=== PATIENT | female | born 1995 | race American Indian/Alaskan Native ===

== ENCOUNTER 2017-03-24 13:57 | Emergency (ER) | payer OTHER ==
[2017-03-24 14:06] VITALS: BP 100/60
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
== END 2017-03-24 16:35 | disposition home or self-care (01) ==
LOC: ED 13:57
DX: S16.1XXA Strain of muscle, fascia and tendon at neck level, initial encounter (principal); M25.512 Pain in left shoulder; V49.59XA Passenger injured in collision with other motor vehicles in traffic accident, initial encounter; Y93.9 Activity, unspecified; Y92.9 Unspecified place or not applicable; Y99.9 Unspecified external cause status
CPT/HCPCS: 72040; 99283

== ENCOUNTER 2017-08-03 15:40 | Emergency (ER) | payer SELFPAY ==
[2017-08-03 16:11] VITALS: BP 108/58
[2017-08-03 17:30] LABS: Bacteria,Urine 1+ /HPF (Negative); Bilirubin,Urine NEG (Negative); Blood,Urine NEG (Negative); Ketones,Urine NEG (Negative); Leukocyte Esterase,Urine TR (Negative); Mucus,Urine FEW /HPF; Nitrite,Urine NEG (Negative); Protein,Urine <15 mg/dL mg/dL (Negative); Urobilinogen,Urine < 2.0 mg/dL (<2.0)
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
== END 2017-08-03 17:47 | disposition home or self-care (01) ==
LOC: ED 15:40
DX: O26.891 Other specified pregnancy related conditions, first trimester (principal); R10.9 Unspecified abdominal pain; Z3A.00 Weeks of gestation of pregnancy not specified
CPT/HCPCS: 81001; 81025; 99283

== ENCOUNTER 2019-11-30 09:39 | Emergency (ER) | payer MEDICAID ==
[2019-11-30 09:52] VITALS: BP 109/74
[2019-11-30] MEDS ORDERED: IBUPROFEN 600 MG TAB PO ONE (10:24)
[2019-11-30] MEDS ORDERED: ACETAMINOPHEN 325 MG TAB PO ONE (10:24)
--- NOTE | 2019-11-30 10:38 | Emergency Department Report ---
ED Abdominal Pain HPI - General Chief Complaint: Abdominal Pain Stated Complaint: LEFT PAIN, CHILLS Time Seen by Provider: 11/30/19 10:24 Source: patient Mode of arrival: Ambulatory Limitations: No Limitations - History of Present Illness Initial Comments: L flank/LUQ pain for past 1-2 days, UTI sx x 3 days no fever but had chills no vomiting no discharge MD Complaint: flank pain -: Gradual, days(s) (3) Location: L flank Radiation: none Migration to: no migration Severity: moderate Severity scale (0 -10): 6 Quality: aching Consistency: constant Improves With: nothing Worsens With: nothing Associated Symptoms: dysuria - Related Data Previous Rx's Medication Instructions Recorded Last Taken Type Albuterol INH(or & Nicu Only) 2 puff IH QID PRN #1 inhalation 08/28/18 Unknown Rx [ProAir HFA Inhaler] Naproxen [Naprosyn TAB] 500 mg PO BID #20 tablet 11/30/19 Unknown Rx cefUROXime [Ceftin] 500 mg PO Q12H #20 tablet 11/30/19 Unknown Rx Allergies Allergy/AdvReac Type Severity Reaction Status Date / Time No Known Allergies Allergy Unverified 03/24/17 14:02 ED Review of Systems ROS: Stated complaint: LEFT PAIN, CHILLS Other details as noted in HPI Comment: All other systems reviewed and negative Gastrointestinal: as per HPI Genitourinary: as per HPI ED Past Medical Hx - Past Medical History Previous Medical History?: No - Surgical History Past Surgical History?: No - Social History Smoking Status: Never Smoker Substance Use Type: None - Medications Home Medications: Home Medications Medication Instructions Recorded Confirmed Last Taken Type Albuterol INH(or & Nicu Only) 2 puff IH QID PRN #1 inhalation 08/28/18 Unknown Rx [ProAir HFA Inhaler] Naproxen [Naprosyn TAB] 500 mg PO BID #20 tablet 11/30/19 Unknown Rx cefUROXime [Ceftin] 500 mg PO Q12H #20 tablet 11/30/19 Unknown Rx ED Physical Exam - General Limitations: No Limitations General appearance: alert, in no apparent distress - Head Head exam: Present: atraumatic, normocephalic - Eye Eye exam: Present: normal appearance - ENT ENT exam: Present: mucous membranes moist - Neck Neck exam: Present: normal inspection - Respiratory Respiratory exam: Present: normal lung sounds bilaterally. Absent: respiratory distress - Cardiovascular Cardiovascular Exam: Present: regular rate, normal rhythm. Absent: systolic murmur, diastolic murmur, rubs, gallop - GI/Abdominal GI/Abdominal exam: Present: soft, tenderness (minimal LUQ), normal bowel sounds. Absent: guarding, rebound - Extremities Exam Extremities exam: Present: normal inspection - Back Exam Back exam: Present: normal inspection. Absent: CVA tenderness (R), CVA tenderness (L) - Neurological Exam Neurological exam: Present: alert, oriented X3 - Psychiatric Psychiatric exam: Present: normal affect, normal mood - Skin Skin exam: Present: warm, dry, intact, normal color. Absent: rash ED Course Vital Signs 11/30/19 09:51 Temperature 97.2 F L Pulse Rate 119 H Respiratory 16 Rate Blood Pressure 109/74 O2 Sat by Pulse 100 Oximetry ED Medical Decision Making - Lab Data Result diagrams: 11/30/19 10:37 11/30/19 10:37 - Medical Decision Making L flank/LUQ pain w/ urinary symptoms exam without focal tenderness in RUQ or RLQ hcg neg UA = UTI labs stable will treat and advise pcp fu HR ~100 on my exam - Differential Diagnosis uti, stone less likely, gastritis Critical care attestation.: If time is entered above; I have spent that time in minutes in the direct care of this critically ill patient, excluding procedure time. ED Disposition Clinical Impression: Urinary tract infection Qualifiers: Urinary tract infection type: site unspecified Hematuria presence: with hematuria Qualified Code(s): N39.0 - Urinary tract infection, site not specified; R31.9 - Hematuria, unspecified Disposition: DC-01 TO HOME OR SELFCARE Is pt being admited?: No Condition: Stable Instructions: Urinary Tract Infection in Women (ED), Abdominal Pain (ED) Prescriptions: cefUROXime [Ceftin] 500 mg PO Q12H #20 tablet Naproxen [Naprosyn TAB] 500 mg PO BID #20 tablet Referrals: AJAY OTT MD [Primary Care Provider] - 3-5 Days JUSTIN HO MD [Referring] - 3-5 Days Time of Disposition: 11:41
[2019-11-30 10:57] LABS: Basophils % (Auto) 0.3 % (0.0-1.8); Hematocrit 34.6 % (30.3-42.9); Hemoglobin 11.6 gm/dl (10.1-14.3); Lymphocytes # (Auto) 1.2 K/mm3 (1.2-5.4); Lymphocytes % (Auto) 14.1 % (13.4-35.0); Mean Corpuscular HGB Conc 34 % (30-34); Mean Corpuscular Volume 81 fl (79-97); Monocytes # (Auto) 1.1 K/mm3 (0.0-0.8); Monocytes % (Auto) 12.5 % (0.0-7.3); Platelet Count 254 K/mm3 (140-440); Red Blood Count 4.29 M/mm3 (3.65-5.03); Red Cell Distribution Width 15.4 % (13.2-15.2)
[2019-11-30 11:01] LABS: Bacteria,Urine 4+ /HPF (Negative); Bilirubin,Urine NEG (Negative); Blood,Urine MOD (Negative); Color,Urine Amber (Yellow); HCG Qualitative,Urine Negative (Negative); Mucus,Urine 3+ /HPF
[2019-11-30 11:03] LABS: WBC,Urine > 182.0 /HPF (0.0-6.0)
[2019-11-30 11:19] LABS: BUN/Creatinine Ratio 13; Blood Urea Nitrogen 8 mg/dL (7-17); Hemolysis Index 12
== END 2019-11-30 12:17 | disposition home or self-care (01) ==
LOC: ED 09:39
DX: N39.0 Urinary tract infection, site not specified (principal); R68.83 Chills (without fever); Z79.899 Other long term (current) drug therapy
CPT/HCPCS: 36415; 80048; 81001; 81025; 85025; 87086

== ENCOUNTER 2020-05-27 13:32 | Emergency (ER) | payer MEDICAID ==
--- NOTE | 2020-05-27 14:13 | Emergency Department Report ---
Chief Complaint: Eye Problems Stated Complaint: PINK EYE Time Seen by Provider: 05/27/20 14:11 - HPI History of Present Illness: Patient is a 25-year-old female presents emergency room stating she needs a work excuse. She states 3 days ago she had left eye discomfort and redness. she denies anything getting into the eye. She states that she has been using an [id number] pinkeye relief drops. She states it has completely resolved. No vision changes, no crusting, no drainage. She has no symptoms currently. No past medical history. No allergies to medications. Vitals are normal On exam: PERRLA, EOMI, no periorbital edema or tenderness to palpation or erythema, no conjunctival injection, no signs of drainage, no eyelid swelling No signs of conjunctivitis or eye infection at this time She is presenting to the emergency room because she states she needs a work excuse advised patient that she can follow-up with a primary care physician discussed return precautions Medical screening examination performed there is no threat to life or limb at this time - Exam Vital Signs: Vital Signs 05/27/20 13:47 Temperature 97.6 F Pulse Rate 86 Respiratory 16 Rate Blood Pressure 111/65 [Right] O2 Sat by Pulse 99 Oximetry MSE screening note: Focused history and physical exam performed. ED Disposition for MSE Clinical Impression: Encounter for medical screening examination Disposition: MED SCREENING EXAM-LEFT Is pt being admited?: No Does the pt Need Aspirin: No Condition: Stable Referrals: MEHUL MARK MD [Staff Physician] - 2-3 Days [facility] [Provider Group] - 2-3 Days [facility] [Outside] - 2-3 Days Forms: Work/School Release Form(ED) Time of Disposition: 14:13 Print Language: EGYPTIAN
[2020-05-27 18:38] VITALS: BP 111/65
== END 2020-05-27 14:34 | disposition left against medical advice (07) ==
LOC: ED 13:32
DX: H57.12 Ocular pain, left eye (principal); Z00.00 Encounter for general adult medical examination without abnormal findings; Z53.21 Procedure and treatment not carried out due to patient leaving prior to being seen by health care provider

== ENCOUNTER → 2020-08-04 14:54 | Emergency (ER) | payer MEDICAID | END | disposition left against medical advice (07) | LOC: ED 14:54 | DX: N39.0 Urinary tract infection, site not specified (principal); Z53.21 Procedure and treatment not carried out due to patient leaving prior to being seen by health care provider ==

== ENCOUNTER 2020-12-15 10:15 | Emergency (ER) | payer MEDICAID ==
[2020-12-15 10:49] VITALS: BP 121/71
--- NOTE | 2020-12-15 11:11 | Emergency Department Report ---
ED Female HPI - General Chief complaint: Urogenital-Female Stated complaint: LEFT SIDE FLANK/URGENCY Time Seen by Provider: 12/15/20 10:54 Source: patient Mode of arrival: Ambulatory Limitations: No Limitations - History of Present Illness Initial comments: pt is a 25 yo female who presents to the ED with c/o stating "I have a yeast infection or UTI." she states for the last several days she has had urinary urgency, vaginal itching, very small amount of white vaginal discharge. she states a few days ago she had mild left flank pain but that completely self resolved. she denies any pelvic pain, abd pain, fever, n/v/d, dysuria. no pmhx. no allergies to meds. LNMP 11/30/2020. she states that she has an appointment with her [facility] on 12/26/2020. - Related Data Previous Rx's Medication Instructions Recorded Last Taken Type Albuterol Mdi (or & Nicu Only) 2 puff IH QID PRN #1 inhalation 08/28/18 Unknown Rx [ProAir HFA Inhaler] Naproxen [Naprosyn TAB] 500 mg PO BID #20 tablet 11/30/19 Unknown Rx cefUROXime [Ceftin] 500 mg PO Q12H #20 tablet 11/30/19 Unknown Rx Fluconazole (Nf) [Diflucan TAB] 150 mg PO ONCE 1 Days #1 tablet 12/15/20 Unknown Rx Miconazole 2% [Monistat-Derm] 1 applicatio TP BID #1 tube 12/15/20 Unknown Rx Allergies Allergy/AdvReac Type Severity Reaction Status Date / Time No Known Allergies Allergy Verified 12/15/20 10:45 ED Review of Systems ROS: Stated complaint: LEFT SIDE FLANK/URGENCY Other details as noted in HPI Comment: All other systems reviewed and negative ED Past Medical Hx - Past Medical History Previous Medical History?: No - Surgical History Past Surgical History?: No - Social History Smoking Status: Never Smoker Substance Use Type: None - Medications Home Medications: Home Medications Medication Instructions Recorded Confirmed Last Taken Type Albuterol Mdi (or & Nicu Only) 2 puff IH QID PRN #1 inhalation 08/28/18 Unknown Rx [ProAir HFA Inhaler] Naproxen [Naprosyn TAB] 500 mg PO BID #20 tablet 11/30/19 Unknown Rx cefUROXime [Ceftin] 500 mg PO Q12H #20 tablet 11/30/19 Unknown Rx Fluconazole (Nf) [Diflucan TAB] 150 mg PO ONCE 1 Days #1 tablet 12/15/20 Unknown Rx Miconazole 2% [Monistat-Derm] 1 applicatio TP BID #1 tube 12/15/20 Unknown Rx ED Physical Exam - General Limitations: No Limitations General appearance: alert, in no apparent distress - Head Head exam: Present: atraumatic, normocephalic - Eye Eye exam: Present: normal appearance - ENT ENT exam: Present: mucous membranes moist - Respiratory Respiratory exam: Present: normal lung sounds bilaterally. Absent: respiratory distress, wheezes, rales, rhonchi, stridor, chest wall tenderness, accessory muscle use, decreased breath sounds, prolonged expiratory - Cardiovascular Cardiovascular Exam: Present: regular rate, normal rhythm, normal heart sounds. Absent: systolic murmur, diastolic murmur, rubs, gallop - GI/Abdominal GI/Abdominal exam: Present: soft, normal bowel sounds. Absent: distended, tenderness, guarding, rebound, rigid - Back Exam Back exam: Absent: CVA tenderness (R), CVA tenderness (L) - Neurological Exam Neurological exam: Present: alert, oriented X3 - Psychiatric Psychiatric exam: Present: normal affect, normal mood - Skin Skin exam: Present: warm, dry, intact ED Course Vital Signs 12/15/20 10:45 Temperature 98.6 F Pulse Rate 65 Respiratory 20 Rate Blood Pressure 121/71 O2 Sat by Pulse 100 Oximetry ED Medical Decision Making - Medical Decision Making pt is a 25 yo female who presents to the ED with c/o stating "I have a yeast infection or UTI." she states for the last several days she has had urinary urgency, vaginal itching, very small amount of white vaginal discharge. she states a few days ago she had mild left flank pain but that completely self resolved. she denies any pelvic pain, abd pain, fever, n/v/d, dysuria. no pmhx. no allergies to meds. LNMP 11/30/2020. she states that she has an appointment with her [facility] on 12/26/2020. Vitals are normal. No abdominal tenderness on exam, no guarding, no rigidity, normal bowel sounds, no peritoneal signs. UA shows yeast, no significant signs of urinary tract infection. Patient given prescription for fluconazole and miconazole. Discussed very strict return precautions with patient. Advised patient to please keep her appointment with her [facility] to discuss her symptoms and to make sure her symptoms have resolved. advised patient please use medication as prescribed. please follow up with your primary care doctor and internet security specialist. please keep your appointment with your internet security specialist. return to the emergency room for any new or worsening symptoms. Critical care attestation.: If time is entered above; I have spent that time in minutes in the direct care of this critically ill patient, excluding procedure time. ED Disposition Clinical Impression: Vulvovaginal candidiasis Disposition: TO HOME OR SELFCARE Is pt being admited?: No Does the pt Need Aspirin: No Condition: Stable Instructions: Vaginal Yeast Infection, Adult Additional Instructions: please use medication as prescribed. please follow up with your primary care doctor and internet security specialist. please keep your appointment with your internet security specialist. return to the emergency room for any new or worsening symptoms. Prescriptions: Fluconazole (Nf) [Diflucan TAB] 150 mg PO ONCE 1 Days #1 tablet Miconazole 2% [Monistat-Derm] 1 applicatio TP BID #1 tube Referrals: PRIMARY CARE,MD [Primary Care Provider] - 2-3 Days your, internet security specialist [Other] - 2-3 Days Time of Disposition: 12:33 Print Language: GRENADIAN
[2020-12-15 12:21] LABS: Bilirubin,Urine NEG (Negative); Blood,Urine NEG (Negative); Color,Urine Yellow (Yellow); HCG Qualitative,Urine Negative (Negative); Mucus,Urine 3+ /HPF; Urobilinogen,Urine < 2.0 mg/dL (<2.0)
== END 2020-12-15 13:10 | disposition home or self-care (01) ==
LOC: ED 10:15
DX: B37.3 Candidiasis of vulva and vagina (principal); Z79.899 Other long term (current) drug therapy
CPT/HCPCS: 81001; 81025

== ENCOUNTER 2022-02-15 18:49 | Emergency (ER) | payer MEDICAID | END 2022-02-15 23:02 | disposition left against medical advice (07) | LOC: ED 18:49 | DX: H57.10 Ocular pain, unspecified eye (principal); R10.9 Unspecified abdominal pain; Z53.21 Procedure and treatment not carried out due to patient leaving prior to being seen by health care provider ==

== ENCOUNTER 2022-07-09 13:18 | Emergency (ER) | payer MEDICAID ==
[2022-07-09 14:00] VITALS: BP 106/66
--- NOTE | 2022-07-09 15:17 | Emergency Department Report ---
ED General Adult HPI - General Chief complaint: Eye Problems Stated complaint: EYE PAIN Time Seen by Provider: 07/09/22 14:49 Source: patient Mode of arrival: Ambulatory Limitations: No Limitations - History of Present Illness Initial comments: 27 Y F with no PMH reports to ER with right eye redness with drainage upon waking this morning. Patient reports slight blurred vision. Patient denies any trauma to her eye. Patient denies any vision loss. No headaches no dizziness reported. No other acute clinical signs or symptoms reported. Patient does report she wear contacts for vision correction. - Related Data Previous Rx's Medication Instructions Recorded Last Taken Type Albuterol Mdi (or & Nicu Only) 2 puff IH QID PRN #1 inhalation 08/28/18 Unknown Rx [ProAir HFA Inhaler] Naproxen [Naprosyn TAB] 500 mg PO BID #20 tablet 11/30/19 Unknown Rx cefUROXime [Ceftin] 500 mg PO Q12H #20 tablet 11/30/19 Unknown Rx Fluconazole (Nf) [Diflucan TAB] 150 mg PO ONCE 1 Days #1 tablet 12/15/20 Unknown Rx Miconazole 2% [Monistat-Derm] 1 applicatio TP BID #1 tube 12/15/20 Unknown Rx Erythromycin [Erythromycin Ophth 1 applic OD Q6HR 7 Days #1 tube 07/09/22 Unknown Rx Oint] Allergies Allergy/AdvReac Type Severity Reaction Status Date / Time No Known Allergies Allergy Verified 12/15/20 10:45 ED Review of Systems ROS: Stated complaint: EYE PAIN Other details as noted in HPI Constitutional: denies: chills, fever Eyes: eye pain, eye discharge. denies: vision change ENT: denies: ear pain, throat pain Respiratory: denies: cough, shortness of breath, wheezing Cardiovascular: denies: chest pain, palpitations Endocrine: no symptoms reported Gastrointestinal: denies: abdominal pain, nausea, diarrhea Genitourinary: denies: urgency, dysuria, discharge Musculoskeletal: denies: back pain, joint swelling, arthralgia Skin: denies: rash, lesions Neurological: denies: headache, weakness, paresthesias Psychiatric: denies: anxiety, depression Hematological/Lymphatic: denies: easy bleeding, easy bruising ED Past Medical Hx - Past Medical History Previous Medical History?: No - Surgical History Past Surgical History?: No - Social History Smoking Status: Never Smoker Substance Use Type: None - Medications Home Medications: Home Medications Medication Instructions Recorded Confirmed Last Taken Type Albuterol Mdi (or & Nicu Only) 2 puff IH QID PRN #1 inhalation 08/28/18 Unknown Rx [ProAir HFA Inhaler] Naproxen [Naprosyn TAB] 500 mg PO BID #20 tablet 11/30/19 Unknown Rx cefUROXime [Ceftin] 500 mg PO Q12H #20 tablet 11/30/19 Unknown Rx Fluconazole (Nf) [Diflucan TAB] 150 mg PO ONCE 1 Days #1 tablet 12/15/20 Unknown Rx Miconazole 2% [Monistat-Derm] 1 applicatio TP BID #1 tube 12/15/20 Unknown Rx Erythromycin [Erythromycin Ophth 1 applic OD Q6HR 7 Days #1 tube 07/09/22 Unknown Rx Oint] ED Physical Exam - General Limitations: No Limitations General appearance: alert, in no apparent distress - Head Head exam: Present: atraumatic, normocephalic - Eye Eye exam: Present: normal appearance, PERRL, EOMI, conjunctival injection (Right). Absent: periorbital swelling Pupils: Present: normal accommodation - ENT ENT exam: Present: mucous membranes moist - Neck Neck exam: Present: normal inspection - Respiratory Respiratory exam: Present: normal lung sounds bilaterally. Absent: respiratory distress - Cardiovascular Cardiovascular Exam: Present: regular rate, normal rhythm. Absent: systolic murmur, diastolic murmur, rubs, gallop - GI/Abdominal GI/Abdominal exam: Present: soft, normal bowel sounds - Extremities Exam Extremities exam: Present: normal inspection - Back Exam Back exam: Present: normal inspection - Neurological Exam Neurological exam: Present: alert, oriented X3 - Psychiatric Psychiatric exam: Present: normal affect, normal mood - Skin Skin exam: Present: warm, dry, intact, normal color. Absent: rash ED Course Vital Signs 07/09/22 13:59 Temperature 98.8 F Pulse Rate 87 Respiratory 18 Rate Blood Pressure 106/66 [Left] O2 Sat by Pulse 99 Oximetry ED Medical Decision Making - Medical Decision Making 27 Y F with no PMH reports to ER with right eye redness with drainage upon waking this morning. Patient reports slight blurred vision. Patient denies any trauma to her eye. Patient denies any vision loss. No headaches no dizziness reported. No other acute clinical signs or symptoms reported. Patient does report she wear contacts for vision correction. Right eye conjunctive with injection. Slight drainage noted. PERRLA intact. Right eye is 20/100, left eye is 20/30. Patient does require contact lenses however does not have contact in for the right eye. Patient has bacterial conjunctivitis. Patient will be sent home with erythromycin eye ointment. Patient has been given directions on taking her eye ointment. Patient agrees with plan of care and verbalized understanding. Patient informed to not to use her contact lenses while she is currently having eye infection. Patient informed if symptoms are to get worse to report back to the ER. Vital Signs 07/09/22 13:59 Temperature 98.8 F Pulse Rate 87 Respiratory 18 Rate Blood Pressure 106/66 [Left] O2 Sat by Pulse 99 Oximetry Critical care attestation.: If time is entered above; I have spent that time in minutes in the direct care of this critically ill patient, excluding procedure time. ED Disposition Clinical Impression: Bacterial conjunctivitis of right eye Disposition: HOME / SELF CARE / HOMELESS Is pt being admited?: No Condition: Stable Instructions: Bacterial Conjunctivitis, Adult Prescriptions: Erythromycin [Erythromycin Ophth Oint] 1 applic OD Q6HR 7 Days #1 tube Referrals: MEHUL MARK MD [Primary Care Provider] - 3-5 Days
== END 2022-07-09 16:20 | disposition home or self-care (01) ==
LOC: ED 13:18
DX: H10.9 Unspecified conjunctivitis (principal); B96.89 Other specified bacterial agents as the cause of diseases classified elsewhere; Z79.899 Other long term (current) drug therapy
CPT/HCPCS: 99282